=== PATIENT | male | born 1995 | race Caucasian/White ===

== ENCOUNTER 2022-03-04 09:53 | Emergency (ER) | payer OTHER ==
[2022-03-04 10:27] LABS: Absolute Lymphocytes (CBC) 1.4 K/uL (0.7-4.9); Hematocrit 43.4 % (39.6-49.0); Lymphocytes % 19.6 % (15.3-44.8); MCV 86.4 fL (80-100); MPV 8.8 fL (7.6-11.3); RBC Red Blood Cell Count 5.03 M/uL (4.33-5.43)
[2022-03-04 10:35] LABS: Protime INR 1.05
[2022-03-04 10:45] LABS: Barbiturates NEGATIVE (NEGATIVE); Benzodiazepines NEGATIVE (NEGATIVE); Cocaine NEGATIVE (NEGATIVE); METHAMPHETAM NEGATIVE (NEGATIVE); Methadone NEGATIVE (NEGATIVE); Opiates NEGATIVE (NEGATIVE); Phencyclidine NEGATIVE (NEGATIVE); THC Cannibis POSITIVE (NEGATIVE)
[2022-03-04 10:59] LABS: ALT/SGPT 18 U/L (12-78); AST/SGOT 11 U/L (15-37); Albumin 4.7 g/dL (3.4-5.0); Alkaline Phosphatase 62 U/L (45-117); BUN Blood Urea Nitrogen 17 mg/dL (7-18); Bicarbonate 27 mmol/L (21-32); Bilirubin Direct 0.1 mg/dL (0-0.2); Bilirubin Total 0.4 mg/dL (0.2-1.0); Glomerular Filtration Rate 111 ml/min (=/>90); Glucose Level 104 mg/dL (74-106); Potassium 3.4 mmol/L (3.5-5.1); Protein, Total 7.8 g/dL (6.4-8.2); Sodium Level 140 mmol/L (136-145)
--- NOTE | 2022-03-04 11:23 | ER ---
Nurse's Notes [facility] Name: Ze Jiang Age: 26 yrs Sex: Male : 1995 Arrival Date: 03/04/2022 Time: 09:58 Bed 20 Private MD: Diagnosis: Bipolar disorder, unspecified;Homelessness Presentation: 03/04 09:58 Chief complaint: Patient states: "I just want to give up in life, I can't get anything aa5 right, I see things and hear voices". Pt reports he is currently homeless. Pt brought to ER by [facility]. 09:58 Coronavirus screen: At this time, the client does not indicate any symptoms associated aa5 with coronavirus-19. Ebola Screen: Patient denies travel to an Ebola-affected area in the 21 days before illness onset. Initial Sepsis Screen: Does the patient meet any 2 criteria? No. Patient's initial sepsis screen is negative. Does the patient have a suspected source of infection? No. Patient's initial sepsis screen is negative. Risk Assessment: Do you want to hurt yourself or someone else? Other: When asked pt states "I just want to quit eating and not take care of myself". Onset of symptoms was February 2022. 09:58 Acuity: NARENDRA 2 aa5 09:58 Method Of Arrival: Other aa5 Historical: - Allergies: 10:04 No Known Allergies; aa5 - PMHx: 10:04 ADHD; Bipolar disorder; aa5 - PSHx: 10:04 None; aa5 - Immunization history:: Adult Immunizations unknown. - Social history:: Smoking status: Patient reports the use of cigarette tobacco products, smokes one pack cigarettes per day. Patient/guardian denies using alcohol, street drugs. Screenin:20 Abuse screen: Denies injuries from another. jh6 10:20 Nutritional screening: states that he has not been able to eat in a couple of days jh6 after leaving [facility] [employer]. pt reports that people at the facility were picking on him and that's why he left. . 10:20 Tuberculosis screening: No symptoms or risk factors identified. Fall Risk None jh6 identified. Assessment: 10:20 General: Appears in no apparent distress. Behavior is cooperative, anxious. Pain: jh6 Denies pain. 11:20 Reassessment: Patient and/or family updated on plan of care and expected duration. Pain jh6 level reassessed. Patient is alert, oriented x 3, equal unlabored respirations, skin warm/dry/pink. PT not wanting to go in-pt and not wanting to go back to facility. mother contacted and is on her way to pick him up. Patient denies pain at this time. 12:57 Reassessment: Patient and/or family updated on plan of care and expected duration. Pain jh6 level reassessed. mother at bedside and is going to help get pts prescription and get him back into [facility] for assistance. 12:58 General: pts belongings given back to pt and pt left with mother. pt did eat all of [facility] lunch meal tray that was given and nad noted. . Psych: 11:00 [place] Suicide Severity Screening: In the past month, have you wished you were jh or wished you could go to sleep and not wake up? Patient responds "No." "In the past month, have you actually had any thoughts of killing yourself?" Patient responds "no." "In your lifetime, have you ever done anything, started to do anything, or prepared to do anything to end your life?" Patient responds "no.". 11:00 Subjective: Patient's mood is flat Hallucinations are auditory. Objective: Patient is jh6 cooperative, Speech is normal, Affect is flat. Interventions: Removed personal items and placed in bag. Patient placed in hospital gown. Urine collected and sent for urine drug test. Belonging list filled out. Safety Checks: Personal items have been removed. Pt has been placed in a hallway bed/chair. No visitors are present at this time. Pt denies substance abuse. Commitment: Patient will be a voluntary commitment. Vital Signs: 09:58 BP 128 / 80; Pulse 62; Resp 16 S; Temp 97.6(O); Pulse Ox 100% on R/A; aa5 12:59 BP 110 / 68; Pulse 70; Resp 16; Temp 97.8; Pulse Ox 100% ; Pain 0/10; 6 ED Course: 09:58 Patient arrived in ED. 6 09:58 Arm band placed on. aa5 10:03 Triage completed. aa5 10:05 Frederick Moya MD is Attending Physician. [facility] 10:08 Hastedt, Brianna, RN is Primary Nurse. 6 11:00 Placed in gown. Bed in low position. Call light in reach. Side rails up X 1. Valuables 6 inventory done. Locked in safe. See valuables checklist. 11:00 Inserted saline lock: 18 gauge in right antecubital area, using aseptic technique. 6 Blood collected. 11:22 Royce Soto MD is Referral Physician. [facility] 12:00 No provider procedures requiring assistance completed. [facility] 12:00 Patient did not have IV access during this emergency room visit. 6 Administered Medications: No medications were administered Medication: 13:02 VIS not applicable for this client. 6 Outcome: 11:23 Discharge ordered by . rachael 13:01 Discharged to home ambulatory. [facility] 13:01 Condition: stable 13:01 Discharge instructions given to patient, family, Instructed on discharge instructions, follow up and referral plans. Demonstrated understanding of instructions, follow-up care, medications, Prescriptions given X 1. 13:02 Patient left the ED. [facility] Signatures: Frederick Moya MD MD cha Calderon, Audri, RN RN aa5 Brianna Fuentes, RN RN jh6
--- NOTE | 2022-03-04 11:24 | EDPHYS ---
Physician Documentation [facility] Name: Ze Jiang Age: 26 yrs Sex: Male : 1995 Arrival Date: 03/04/2022 Time: 09:58 Bed 20 Private MD: RENÉ Physician Frederick Moya HPI: 03/04 11:18 This 26 yrs old Male presents to ER via Other with complaints of Psych rachael Problem. 11:18 The patient presents to the emergency department with anxiety, depression, over unknown rachael circumstances. Onset: The symptoms/episode began/occurred 2 day(s) ago. Past psychiatric history: Prior diagnosis: bipolar disorder. Associated signs and symptoms: The patient has no apparent associated signs or symptoms. Severity of symptoms: At their worst the symptoms were mild in the emergency department the symptoms are unchanged. The patient has not experienced similar symptoms in the past. Historical: - Allergies: 10:04 No Known Allergies; aa5 - PMHx: 10:04 ADHD; Bipolar disorder; aa5 - PSHx: 10:04 None; aa5 - Immunization history:: Adult Immunizations unknown. - Social history:: Smoking status: Patient reports the use of cigarette tobacco products, smokes one pack cigarettes per day. Patient/guardian denies using alcohol, street drugs. ROS: 11:18 Constitutional: Negative for fever, chills, and weight loss, Eyes: Negative for injury, rachael pain, redness, and discharge, ENT: Negative for injury, pain, and discharge, Neck: Negative for injury, pain, and swelling, Cardiovascular: Negative for chest pain, palpitations, and edema, Respiratory: Negative for shortness of breath, cough, wheezing, and pleuritic chest pain, Abdomen/GI: Negative for abdominal pain, nausea, vomiting, diarrhea, and constipation, Back: Negative for injury and pain, : Negative for injury, bleeding, discharge, and swelling, MS/Extremity: Negative for injury and deformity, Skin: Negative for injury, rash, and discoloration, Neuro: Negative for headache, weakness, numbness, tingling, and seizure, Allergy/Immunology: Negative for hives, rash, and allergies, Endocrine: Negative for neck swelling, polydipsia, polyuria, polyphagia, and marked weight changes, Hematologic/Lymphatic: Negative for swollen nodes, abnormal bleeding, and unusual bruising. 11:18 Psych: Positive for depression. Exam: 11:18 Constitutional: This is a well developed, well nourished patient who is awake, alert, rachael and in no acute distress. Head/Face: Normocephalic, atraumatic. Eyes: Pupils equal round and reactive to light, extra-ocular motions intact. Lids and lashes normal. Conjunctiva and sclera are non-icteric and not injected. Cornea within normal limits. Periorbital areas with no swelling, redness, or edema. ENT: Nares patent. No nasal discharge, no septal abnormalities noted. Tympanic membranes are normal and external auditory canals are clear. Oropharynx with no redness, swelling, or masses, exudates, or evidence of obstruction, uvula midline. Mucous membranes moist. Neck: Trachea midline, no thyromegaly or masses palpated, and no cervical lymphadenopathy. Supple, full range of motion without nuchal rigidity, or vertebral point tenderness. No Meningismus. Chest/axilla: Normal chest wall appearance and motion. Nontender with no deformity. No lesions are appreciated. Cardiovascular: Regular rate and rhythm with a normal S1 and S2. No gallops, murmurs, or rubs. Normal PMI, no JVD. No pulse deficits. Respiratory: Lungs have equal breath sounds bilaterally, clear to auscultation and percussion. No rales, rhonchi or wheezes noted. No increased work of breathing, no retractions or nasal flaring. Abdomen/GI: Soft, non-tender, with normal bowel sounds. No distension or tympany. No guarding or rebound. No evidence of tenderness throughout. Back: No spinal tenderness. No costovertebral tenderness. Full range of motion. Male : Normal genitalia with no discharge or lesions. Skin: Warm, dry with normal turgor. Normal color with no rashes, no lesions, and no evidence of cellulitis. MS/ Extremity: Pulses equal, no cyanosis. Neurovascular intact. Full, normal range of motion. Neuro: Awake and alert, GCS 15, oriented to person, place, time, and situation. Cranial nerves II-XII grossly intact. Motor strength 5/5 in all extremities. Sensory grossly intact. Cerebellar exam normal. Normal gait. 11:18 Psych: Behavior/mood is pleasant, cooperative, Affect is calm, Oriented to person, place, time, Patient has no thoughts/intents to harm self or others. Judgement / Insight is normal. Memory is normal. Delusions/hallucinations are not present. Vital Signs: 09:58 BP 128 / 80; Pulse 62; Resp 16 S; Temp 97.6(O); Pulse Ox 100% on R/A; aa5 12:59 BP 110 / 68; Pulse 70; Resp 16; Temp 97.8; Pulse Ox 100% ; Pain 0/10; jh6 MDM: 10:05 Patient medically screened. [facility] 11:20 Differential diagnosis: acute psychotic break, depression. Data reviewed: vital signs, [facility] nurses notes, lab test result(s), EKG. Data interpreted: teletypesetter monitor: rate is 62 beats/min, rhythm is regular, Pulse oximetry: on room air is 100 %. Test interpretation: by ED physician or midlevel provider: ECG. Counseling: I had a detailed discussion with the patient and/or guardian regarding: the historical points, exam findings, and any diagnostic results supporting the discharge/admit diagnosis, lab results, the need for outpatient follow up, for definitive care, a psychiatrist. 11:24 ED course: NO HOMICIDAL , NOT SUICIDAL. [facility] 03/04 10:05 Order name: Acetaminophen; Complete Time: 11: [facility] 03/04 10:05 Order name: Basic Metabolic Panel; Complete Time: : [facility] 03/04 10:05 Order name: CBC with Diff; Complete Time: 11: [facility] 03/04 10:05 Order name: ETOH Level; Complete Time: 11: [facility] 03/04 10:05 Order name: Hepatic Function; Complete Time: 11: [facility] 03/04 10:05 Order name: PT-INR; Complete Time: 11: [facility] 03/04 10:05 Order name: Ptt, Activated; Complete Time: 11: [facility] 03/04 10:05 Order name: Salicylate; Complete Time: 11: [facility] 03/04 10:05 Order name: Urine Drug Screen; Complete Time: : [facility] 03/04 10:05 Order name: EKG - Nurse/Tech [facility] 03/04 10:05 Order name: IV Saline Lock [facility] 03/04 11:08 Order name: Diet Finger Food; Complete Time: 11:09 [facility] 03/04 10:05 Order name: Labs collected and sent [facility] 03/04 10:05 Order name: Suicide Screening ([place]) [facility] 03/04 10:05 Order name: Urine Dipstick-Ancillary (obtain specimen) [facility] Administered Medications: No medications were administered Disposition Summary: 03/04/22 11:23 Discharge Ordered Location: Home [facility] Problem: new rachael Symptoms: have improved rachael Condition: Stable rachael Diagnosis - Bipolar disorder, unspecified rachael - Homelessness rachael Followup: rachael - With: Private Physician - When: 2 - 3 days - Reason: Recheck today's complaints, Continuance of care, Re-evaluation by your physician Followup: rachael - With: Royce Soto MD - When: 2 - 3 days - Reason: Recheck today's complaints, Re-evaluation by your physician Discharge Instructions: - Discharge Summary Sheet rachael - Mixed Bipolar Disorder rachael - Managing Stress, Adult rachael Forms: - Medication Reconciliation Form rachael - Thank You Letter rachael - Antibiotic Education rachael - Prescription Opioid Use rachael Prescriptions: - Hydroxyzine HCl 25 mg Oral Tablet - take 1 tablet by ORAL route every 6 hours As needed; 20 tablet; Refills: 0, rachael Product Selection Permitted Signatures: Dispatcher [employer] Frederick Zacarias MD MD cha Calderon, Audri, RN RN aa5
[2022-03-06 20:10] VITALS: O2SAT 100
[2022-03-06 20:11] VITALS: BP 110/68; TEMP 97.8
== END 2022-03-04 13:02 | disposition home or self-care (01) ==
LOC: ER 09:53
DX: F31.9 Bipolar disorder, unspecified (principal); Z59.00 Homelessness unspecified; F17.210 Nicotine dependence, cigarettes, uncomplicated
CPT/HCPCS: 36415; 80048; 80076; 80307; 80320; 80329; 85025; 85610; 85730; 99284